=== PATIENT | male | born 2000 | race Caucasian/White ===

== ENCOUNTER 2024-01-31 14:55 | Emergency (ER) | payer OTHER ==
[~2024-01-31] VITALS: Ht 167.6 cm; Wt 77.1 kg
[2024-01-31 15:07] VITALS: BP 132/74; PULSE 77; RESP 20
[2024-01-31] MEDS ORDERED: CEPH500B PO (15:39)
[2024-01-31] MEDS: DIPH,PERTUSS(ACELL),TET VAC/PF 0.5 ML VIAL IM ONE (15:42)
== END 2024-01-31 16:03 | disposition home or self-care (01) ==
LOC: EDH 14:55
DX: S91.331A Puncture wound without foreign body, right foot, initial encounter (principal); W26.8XXA Contact with other sharp object(s), not elsewhere classified, initial encounter; Y93.89 Activity, other specified; Y92.89 Other specified places as the place of occurrence of the external cause; Y99.8 Other external cause status
CPT/HCPCS: 73630; 90471; 90715